=== PATIENT | male | born 1945 | race Caucasian/White ===

== ENCOUNTER 2020-06-14 20:59 | Observation (INO) ==
--- NOTE | 2020-06-14 21:38 | Emergency Department Note ---
Arrhythmia/Palpitations HPI General Chief Complaint: Arrhythmia/Palpitations Stated Complaint: TACHY AFTER DIALYSIS Time Seen by Provider: 06/14/20 21:04 Source: patient Mode of arrival: wheelchair Limitations: no limitations History of Present Illness HPI Narrative: Narrative: 75-year-old male who has felt woozy and lightheaded the last 2 times he has had dialysis. He has a history of atrial fibrillation/flutter and is on apixaban for that but he states he has not had an episode for like 18 months. He is on diltiazem twice a day for this as well. Denies fever shortness of breath. Related Data Home Medications Medication Instructions Recorded Confirmed blood-glucose meter 06/22/15 03/31/20 lancets 06/22/15 03/31/20 CBD 3 % PO PRN PRN 06/15/20 06/15/20 acetaminophen [Tylenol Extra 1,000 mg PO TID 06/15/20 06/15/20 Strength] lidocaine [Lidoderm] 1 patch TOPICAL DAILY 06/15/20 06/15/20 meloxicam 15 mg PO QDAY 06/15/20 06/15/20 Previous Rx's Medication Instructions Recorded Ileostomy Supplies #1 each 08/15/16 Breeze 2 Test Strips #200 each NS 11/08/17 Levemir U-100 Insulin 100 unit/mL See Rx Instructions .ROUTE 10/07/19 subcutaneous solution .COMPLEX #60 ml NS insulin syringe-needle U-100 1 mL #100 each 11/19/19 29 gauge x 5/16" liraglutide 0.6 mg/0.1 mL (18 mg/3 See Rx Instructions .ROUTE 02/19/20 mL) subcutaneous pen injector .COMPLEX #18 ml apixaban 2.5 mg tablet 2.5 mg PO BID #180 tab 06/03/20 diclofenac sodium 1 % topical gel 2 g TOPICAL QID #100 g 06/03/20 diltiazem HCl 420 mg capsule,24 420 mg PO QAM #90 cap 06/03/20 hr,extended release gabapentin 300 mg capsule 300 mg PO QHS #90 cap 06/03/20 vitamin B complex 1 tab PO QAM #100 tab 06/03/20 amitriptyline 25 mg tablet 25 mg PO QHS #30 tab 06/14/20 Allergies Allergy/AdvReac Type Severity Reaction Status Date / Time No Known Drug Allergies Allergy Verified 06/14/20 21:03 Review of Systems ROS ROS Narrative: Narrative: All systems ED: reviewed and negative except as stated. [facility] Narrative Patient History Narrative: Narrative: Medical/Surgical/Family History All Active Problems Atrial flutter with rapid ventricular response (Acute) Acute delirium (Acute) Hypoglycemia (Acute) ESRD (end stage renal disease) on dialysis (Acute) Renal mass, right (Acute) CKD stage G3a/A3, GFR 45-59 and albumin creatinine ratio >300 mg/g (Chronic) Degenerative joint disease involving multiple joints on both sides of body (Chronic) Chronic pain (Chronic) Sinusitis, acute (Acute) DAVE on CPAP (Chronic) Cataract (Acute) CKD (chronic kidney disease), stage III (Chronic) Near syncope (Acute) Atherosclerotic cardiovascular disease (Acute) Hypoglycemia associated with diabetes (Acute) Atypical syncope (Acute) Dyspnea (Acute) Anemia (Chronic) Osteoarthritis (Chronic) Atrial fibrillation (Chronic) Restless legs syndrome (Chronic) Encounter for Health Maintenance Examination in Adult (Chronic) Gastroesophageal reflux disease (Acute) Bursitis (Chronic) 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) Lumbar radiculopathy (Chronic) Nausea (Chronic) Uvulitis (Acute) Atrial flutter (Chronic) S/P insertion of spinal cord stimulator (Acute) Hx of ileostomy (Acute) Hx of cystoscopy (Acute) Hx of carpal tunnel repair (Acute) Sleep apnea (Chronic) Rhinitis, chronic (Chronic) Radiculopathy, lumbosacral or thoracic (Chronic) Proteinuria (Chronic) Peripheral neuropathy (Chronic) Knee pain (Chronic) Kidney stones (Chronic) Hypertension (Chronic) Hyperlipidemia, mixed (Chronic) Diabetes mellitus, type II (Chronic) Depression (Chronic) Ulcerative colitis (Chronic) Back pain with radiation (Chronic) Arthritis (Chronic) Medical History Arthritis (Chronic) Cervical by MRI in 2008 Atrial flutter (Chronic) to LATASHA--discussed w/ Dr Nixon Atrial flutter (Chronic) Back pain with radiation (Chronic) Low Back pain with radiculopathy-spinal stimulator in 2006, currently turned off Bursitis (Chronic) Chronic kidney disease (Chronic) CKD (chronic kidney disease), stage III (Chronic) CKD stage G3a/A3, GFR 45-59 and albumin creatinine ratio >300 mg/g (Chronic) Common things being common this is 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 Looking ahead if he undergoes a right nephrectomy he will end up with estimated GFR between 15 and 20 cc/min. To have explained to the patient Depression (Chronic) Chronic-Prozac Diabetes mellitus, type II (Chronic) Adult onset insulin dependent diabetes with now increasing peripheral neuropathy and mild proteinuria Gastroesophageal reflux disease (Acute) Hyperlipidemia, mixed (Chronic) with multiple medicine intolerences Hypertension (Chronic) Kidney stones (Chronic) Recurrent renal stones with previous retrograde and cysto in 2010; episodic followup with Dr. Colvin, now following with Dr. New; hospitialization 2012 for recurrent kidney stone. Knee pain (Chronic) bilateral half-way current use of anticoagulant therapy (Chronic) started on coumadin 07/2015 Lumbar radiculopathy (Chronic) Nausea (Chronic) DAVE (obstructive sleep apnea) (Acute) DAVE on CPAP (Chronic) Peripheral neuropathy (Chronic) Proteinuria (Chronic) Mild Pruritus (Chronic) Radiculopathy, lumbosacral or thoracic (Chronic) Low back pain with radiculopathy--spinal stimulator in 2006, currently turned off. Renal failure, chronic (Resolved) 11/18/13 Renal mass, right (Acute) This is new in reviewing his scan. Side effects related to his back pain as he has lots of DJD and cervical spinal stenosis and the pain predated the radiographic detection of his right renal mass. Saw Dr Barth for right renal mass and referred to Rubi for either IR ablation of RCCA or laproscopic nephron sparing partial NPx, he mentioned Dr Lee but I am not familiar with this physician. Rhinitis, chronic (Chronic) Sleep apnea (Chronic) with intolerance to CPAP Ulcerative colitis (Chronic) status post ileostomy in 1990 with stable B12 levels chronically Uvulitis (Acute) Surgical History History of endoscopy (Acute) 03/02/2020-Dr. Mejia Hx of carpal tunnel repair (Acute) Hx of cystoscopy (Acute) History of recurrent renal stones with previous retrograde and cysto in 2010; episodic followup with Dr. Colvin, now following with Dr. New; recent hospitalization for recurrent kidney stone with repeat 24 hour urine pending. Hx of ileostomy (Acute) Ulcerative colitis status post ileostomy in 1990 with stable B12 level last year. S/P insertion of spinal cord stimulator (Acute) 2006-currently turned off Family History Grandfather Cardiac disease Cerebrovascular accident Mother , Lung cancer No problems noted. Other Cancer HTN (hypertension) Kidney stone Prostate cancer Social History Smoking Status: Former smoker Alcohol Intake Frequency: does not drink Substance Use: does not use Exam Narrative Narrative: Narrative:No acute distress. Conjunctive are clear sclerae white nonicteric. No nasal discharge or congestion. Oropharynx pink and moist. Neck is supple without lymphadenopathy or thyromegaly. Heart is tachycardic I cannot hear a murmur. Lungs are clear to auscultation bilaterally without wheezes rales rhonchi or respiratory distress. He does have multiple scars on her abdomen including one from nephrectomy and a midline scar. He is also got an ostomy bag in place from previous total colectomy. This does seem to be in good position and is not leaking. No pedal edema. Alert oriented able answer q uestions appropriately. He is moving around without difficulty General Limitations: no limitations Course Vital Signs Vital signs: Vital Signs Pulse Rate 142 H 06/14/20 21:00 Respiratory Rate 16 06/14/20 21:00 Blood Pressure 157/109 06/14/20 21:00 Pulse Oximetry (%) 100 06/14/20 21:00 Temperature 99 F 06/15/20 08:01 Pulse Rate 89 06/15/20 02:01 Respiratory Rate 20 06/15/20 08:01 Blood Pressure 157/89 06/15/20 08:01 Pulse Oximetry (%) 98 06/15/20 08:01 [facility] MDM Narrative Medical decision making narrative: Narrative: Patient was initially mentating normally at rest and was just tachycardic-he clearly has atrial flutter with rapid ventricular response. He already took his diltiazem this morning and it is a relatively high dose so I gave him metoprolol 5 mg IV. He actually did well with that and was almost rate controlled with rates in the 100-110 range I went to reevaluate him and he was consistently doing better in terms of rate control but patient became delirious and diaphoretic. Found to have blood sugar of 47. Given sugar and was getting better. We ended up giving him metoprolol 25 mg p.o. which did help as well with the rate control I advised the patient we should probably evaluate him because of his labile blood sugars and heart rate-I discussed the case with Dr. Gonzalez, our hospitalist. He agreed to accept the patient for further care and evaluation. I also briefly discussed the case with Dr. Lockwood the night clerk auditor, he agreed to consult on the patient Later nursing staff called to report that he did spontaneously convert to sinus rhythm Lab Data Lab results reviewed: Yes I reviewed the patient's lab results. Result diagrams: 06/15/20 07:00 06/15/20 07:00 Labs: Lab Results 06/14/20 06/14/20 06/14/20 Range/Units 21:35 21:36 21:36 WBC 9.8 (4.50-11.00) K/mcL RBC 3.72 L (4.63-6.08) M/mcL Hgb 11.9 L (13.7-17.5) g/dL Hct 35.4 L (40.1-51.0) % MCV 95.2 (80.0-100.0) fL MCH 32.0 (26.0-34.0) pg MCHC 33.6 (31.0-36.0) g/dL RDW 12.5 (11.5-14.5) % Plt Count 322 (140-440) K/mcL MPV 9.1 (7.4-10.4) fL Gran % 61.9 (38.0-78.0) % Lymph % (Auto) 25.0 (15.5-49.0) % Caroline % (Auto) 7.6 (1.0-12.0) % Eos % (Auto) 4.9 (0.0-7.0) % Baso % (Auto) 0.6 (0.0-2.0) % Gran # 6.03 (1.80-8.00) K/mcL Lymph # (Auto) 2.44 (1.50-4.80) K/mcL Caroline # (Auto) 0.74 (0.10-0.90) K/mcL Eos # (Auto) 0.48 (0.00-0.70) K/mcL Baso # (Auto) 0.06 (0.00-0.30) K/mcL Sodium 135 (133-145) mmol/L Potassium 4.4 (3.3-5.1) mmol/L Chloride 95 L (96-108) mmol/L Carbon Dioxide 26 (22-30) mmol/L Anion Gap 14.0 (8-16) BUN 26 H (8-23) mg/dl Creatinine 3.6 H (0.7-1.2) mg/dl GFR Calculation 16 Glucose 69 L (70-105) mg/dL Calcium 9.1 (8.6-10.4) mg/dl Phosphorus (2.7-4.5) mg/dL Magnesium (1.6-2.5) mg/dL Total Bilirubin 0.2 (0.0-1.0) mg/dL AST 13 (0-37) U/l ALT 16 (0-40) U/l Alkaline Phosphatase 96 (39-117) U/L Troponin T 0.08 H* (0-0.03) ng/ml NT-Pro-B Natriuret Pep (0-125) pg/ml Total Protein 7.5 (5.9-8.4) gm/dL Albumin 4.0 (3.2-5.2) gm/dL Globulin 3.5 (2.2-3.7) gm/dL Albumin/Globulin Ratio 1.1 (1.0-2.3) TSH 3.07 (0.27-5.01) uIU/ml 06/15/20 06/15/20 Range/Units 01:00 01:00 WBC (4.50-11.00) K/mcL RBC (4.63-6.08) M/mcL Hgb (13.7-17.5) g/dL Hct (40.1-51.0) % MCV (80.0-100.0) fL MCH (26.0-34.0) pg MCHC (31.0-36.0) g/dL RDW (11.5-14.5) % Plt Count (140-440) K/mcL MPV (7.4-10.4) fL Gran % (38.0-78.0) % Lymph % (Auto) (15.5-49.0) % Caroline % (Auto) (1.0-12.0) % Eos % (Auto) (0.0-7.0) % Baso % (Auto) (0.0-2.0) % Gran # (1.80-8.00) K/mcL Lymph # (Auto) (1.50-4.80) K/mcL Caroline # (Auto) (0.10-0.90) K/mcL Eos # (Auto) (0.00-0.70) K/mcL Baso # (Auto) (0.00-0.30) K/mcL Sodium (133-145) mmol/L Potassium (3.3-5.1) mmol/L Chloride (96-108) mmol/L Carbon Dioxide (22-30) mmol/L Anion Gap (8-16) BUN (8-23) mg/dl Creatinine (0.7-1.2) mg/dl GFR Calculation Glucose (70-105) mg/dL Calcium (8.6-10.4) mg/dl Phosphorus 5.5 H (2.7-4.5) mg/dL Magnesium 2.1 (1.6-2.5) mg/dL Total Bilirubin (0.0-1.0) mg/dL AST (0-37) U/l ALT (0-40) U/l Alkaline Phosphatase (39-117) U/L Troponin T 0.08 H* (0-0.03) ng/ml NT-Pro-B Natriuret Pep 935.7 H (0-125) pg/ml Total Protein (5.9-8.4) gm/dL Albumin (3.2-5.2) gm/dL Globulin (2.2-3.7) gm/dL Albumin/Globulin Ratio (1.0-2.3) TSH (0.27-5.01) uIU/ml EKG Data EKG #1: EKG attestation: Yes I reviewed and interpreted this EKG. EKG results narrative: atrial flutter with rapid ventricular response EKG #2: EKG attestation: Yes I reviewed and interpreted this EKG. EKG results narrative: EKG shows continued atrial flutter but rate controlled Discharge Plan Patient/Caregiver Discharge Instructions Pt seen by UNDERGROUND MINER/PA only: No Clinical Impression: ESRD (end stage renal disease) on dialysis, Atrial flutter with rapid ventricular response, Acute delirium, Hypoglycemia Patient Disposition: Xfer As Inpt ([facility]) Condition: Fair Discharge Date/Time: 06/15/20 02:09 Discharge Location: [facility]
[2020-06-14] MEDS: METOPROLOL TARTRATE 5 MG/5 ML VIAL IV SCH ×3 (22:00→22:15)
[2020-06-14 22:17] LABS: Basophils # (Auto) 0.06 K/mcL (0.00-0.30); Basophils % (Auto) 0.6 % (0.0-2.0); Eosinophils # (Auto) 0.48 K/mcL (0.00-0.70); Eosinophils % (Auto) 4.9 % (0.0-7.0); Granulocytes % (Auto) 61.9 % (38.0-78.0); Hematocrit 35.4 % (40.1-51.0); Hemoglobin 11.9 g/dL (13.7-17.5); Lymphocytes # (Auto) 2.44 K/mcL (1.50-4.80); Mean Cell Volume 95.2 fL (80.0-100.0); Mean Corpuscular HGB Conc 33.6 g/dL (31.0-36.0); Mean Platelet Volume 9.1 fL (7.4-10.4); Monocytes # (Auto) 0.74 K/mcL (0.10-0.90); Monocytes % (Auto) 7.6 % (1.0-12.0); Platelet Count 322 K/mcL (140-440); RBC 3.72 M/mcL (4.63-6.08); Red Cell Distribution Width 12.5 % (11.5-14.5); WBC 9.8 K/mcL (4.50-11.00)
[2020-06-14 22:54] LABS: ALT/SGPT 16 U/l (0-40); AST/SGOT 13 U/l (0-37); Albumin/Globulin Ratio 1.1 (1.0-2.3); Alkaline Phosphatase 96 U/L (39-117); Bilirubin,Total 0.2 mg/dL (0.0-1.0); Blood Urea Nitrogen 26 mg/dl (8-23); Calcium 9.1 mg/dl (8.6-10.4); Carbon Dioxide 26 mmol/L (22-30); Globulin 3.5 gm/dL (2.2-3.7); Glomerular Filtration Rate 16; Glucose 69 mg/dL (70-105); Thyroid Stimulating Hormone 3.07 uIU/ml (0.27-5.01)
[2020-06-14 22:57] LABS: Chloride 95 mmol/L (96-108)
[2020-06-14] MEDS ORDERED: METOPROLOL TARTRATE 25 MG TABLET PO ONE (23:19)
[2020-06-15] MEDS ORDERED: ONDANSETRON 4 MG/2 ML VIAL IV PRN (00:44)
[2020-06-15] MEDS ORDERED: DEXTROSE 31 GM ORAL.SUSP PO PRN (00:49)
[2020-06-15] MEDS ORDERED: DEXTROSE 50% 50 ML VIAL IV PRN (00:49)
[2020-06-15] MEDS ORDERED: METOPROLOL TARTRATE 5 MG/5 ML VIAL IV PRN ×2 (00:51→11:30)
--- NOTE | 2020-06-15 00:55 | Internal Med History&Physical ---
HPI History of Present Illness Patient information: Note initiated : 06/15/20 at 12:54 am Service Date, if different from initiated Date: [] Patient: Jayson Bush a 75 y/o M admitted on for TACHY AFTER DIALYSIS. Chief Complaint: [] History of present illness: Mr. Bush is a 75 year old M with a history of atrial fibrillation and atrial flutter, end-stage renal disease on dialysis, diabetes, high blood pressure, and history of ulcerative colitis who presented to the ER due to palpitation and lightheadedness during dialysis. As per patient, patient these feelings during the last 2 sessions of dialysis. In the ER, he was found to have atrial flutter with rapid ventricular response. He was given metoprolol to control the heart rate. He also was found to be confused. Checked on his blood sugar, showing 47. His sugar level went back to normal after D50 was given. His mental status significantly improved. When I saw the patient in the ER, other than symptoms above, he denied headache, dizziness, chest pain, shortness of breath, abdominal pain, diarrhea, nausea, vomiting. Review of Systems All systems: reviewed and no additional remarkable complaints except as stated PFSH PFSH All Active Problems Atrial flutter with rapid ventricular response (Acute) Acute delirium (Acute) Hypoglycemia (Acute) ESRD (end stage renal disease) on dialysis (Acute) Renal mass, right (Acute) CKD stage G3a/A3, GFR 45-59 and albumin creatinine ratio >300 mg/g (Chronic) Degenerative joint disease involving multiple joints on both sides of body (Chronic) Chronic pain (Chronic) Sinusitis, acute (Acute) DAVE on CPAP (Chronic) Cataract (Acute) CKD (chronic kidney disease), stage III (Chronic) Near syncope (Acute) Atherosclerotic cardiovascular disease (Acute) Hypoglycemia associated with diabetes (Acute) Atypical syncope (Acute) Dyspnea (Acute) Anemia (Chronic) Osteoarthritis (Chronic) Atrial fibrillation (Chronic) Restless legs syndrome (Chronic) Encounter for Health Maintenance Examination in Adult (Chronic) Gastroesophageal reflux disease (Acute) Bursitis (Chronic) 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) Lumbar radiculopathy (Chronic) Nausea (Chronic) Uvulitis (Acute) Atrial flutter (Chronic) S/P insertion of spinal cord stimulator (Acute) Hx of ileostomy (Acute) Hx of cystoscopy (Acute) Hx of carpal tunnel repair (Acute) Sleep apnea (Chronic) Rhinitis, chronic (Chronic) Radiculopathy, lumbosacral or thoracic (Chronic) Proteinuria (Chronic) Peripheral neuropathy (Chronic) Knee pain (Chronic) Kidney stones (Chronic) Hypertension (Chronic) Hyperlipidemia, mixed (Chronic) Diabetes mellitus, type II (Chronic) Depression (Chronic) Ulcerative colitis (Chronic) Back pain with radiation (Chronic) Arthritis (Chronic) Medical History Arthritis (Chronic) Cervical by MRI in 2008 Atrial flutter (Chronic) to LATASHA--discussed w/ Dr Nixon Atrial flutter (Chronic) Back pain with radiation (Chronic) Low Back pain with radiculopathy-spinal stimulator in 2006, currently turned off Bursitis (Chronic) Chronic kidney disease (Chronic) CKD (chronic kidney disease), stage III (Chronic) CKD stage G3a/A3, GFR 45-59 and albumin creatinine ratio >300 mg/g (Chronic) Common things being common this is 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 Looking ahead if he undergoes a right nephrectomy he will end up with estimated GFR between 15 and 20 cc/min. To have explained to the patient Depression (Chronic) Chronic-Prozac Diabetes mellitus, type II (Chronic) Adult onset insulin dependent diabetes with now increasing peripheral neuropathy and mild proteinuria Gastroesophageal reflux disease (Acute) Hyperlipidemia, mixed (Chronic) with multiple medicine intolerences Hypertension (Chronic) Kidney stones (Chronic) Recurrent renal stones with previous retrograde and cysto in 2010; episodic followup with Dr. Colvin, now following with Dr. New; hospitialization 2012 for recurrent kidney stone. 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 Renal failure, chronic (Resolved) 11/18/13 Renal mass, right (Acute) This is new in reviewing his scan. Side effects related to his back pain as he has lots of DJD and cervical spinal stenosis and the pain predated the radiographic detection of his right renal mass. Saw Dr Barth for right renal mass and referred to Rubi for either IR ablation of RCCA or laproscopic nephron sparing partial NPx, he mentioned Dr Lee but I am not familiar with this physician. Rhinitis, chronic (Chronic) Sleep apnea (Chronic) with intolerance to CPAP Ulcerative colitis (Chronic) status post ileostomy in 1990 with stable B12 levels chronically Uvulitis (Acute) Surgical History History of endoscopy (Acute) 03/02/2020-Dr. Mejia Hx of carpal tunnel repair (Acute) Hx of cystoscopy (Acute) History of recurrent renal stones with previous retrograde and cysto in 2010; episodic followup with Dr. Colvin, now following with Dr. New; recent hospitalization for recurrent kidney stone with repeat 24 hour urine pending. Hx of ileostomy (Acute) Ulcerative colitis status post ileostomy in 1990 with stable B12 level last year. S/P insertion of spinal cord stimulator (Acute) 2006-currently turned off Family History Grandfather Cardiac disease Cerebrovascular accident Mother , Lung cancer No problems noted. Other Cancer HTN (hypertension) Kidney stone Prostate cancer Social History household members: spouse housing: house marital status: occupational status: retired smoking status: Former smoker quit date: 09/24/84 pack-years: 15 alcohol intake frequency: does not drink substance use type: does not use MEDS/ALLERGIES Home Medications and Allergies Home Medications Medication Instructions Recorded Confirmed Type blood-glucose meter 06/22/15 03/31/20 History lancets 06/22/15 03/31/20 History Ileostomy Supplies #1 each 08/15/16 03/31/20 Rx Breeze 2 Test Strips #200 each NS 11/08/17 03/31/20 Rx Levemir U-100 Insulin 100 unit/mL See Rx Instructions .ROUTE 10/07/19 06/15/20 Rx subcutaneous solution .COMPLEX #60 ml NS insulin syringe-needle U-100 1 mL #100 each 11/19/19 03/31/20 Rx 29 gauge x 5/16" liraglutide 0.6 mg/0.1 mL (18 mg/3 See Rx Instructions .ROUTE 02/19/20 06/15/20 Rx mL) subcutaneous pen injector .COMPLEX #18 ml apixaban 2.5 mg tablet 2.5 mg PO BID #180 tab 06/03/20 06/15/20 Rx diclofenac sodium 1 % topical gel 2 g TOPICAL QID #100 g 06/03/20 06/15/20 Rx diltiazem HCl 420 mg capsule,24 420 mg PO QAM #90 cap 06/03/20 06/15/20 Rx hr,extended release gabapentin 300 mg capsule 300 mg PO QHS #90 cap 06/03/20 06/15/20 Rx vitamin B complex 1 tab PO QAM #100 tab 06/03/20 06/15/20 Rx amitriptyline 25 mg tablet 25 mg PO QHS #30 tab 06/14/20 06/15/20 Rx CBD 3 % PO PRN PRN 06/15/20 06/15/20 History acetaminophen [Tylenol Extra 1,000 mg PO TID 06/15/20 06/15/20 History Strength] lidocaine [Lidoderm] 1 patch TOPICAL DAILY 06/15/20 06/15/20 History meloxicam 15 mg PO QDAY 06/15/20 06/15/20 History Allergies Allergy/AdvReac Type Severity Reaction Status Date / Time No Known Drug Allergies Allergy Verified 06/14/20 21:03 EXAM Constitutional Vitals: Pulse Resp BP Pulse Ox 93 H 24 H 146/93 97 06/15/20 00:46 06/15/20 00:46 06/15/20 00:46 06/15/20 00:46 Additional findings Additional findings: General - No acute distress Eyes - PERRLA, EOM intact ENT no rhinorrhea, no noticeable or palpable swelling, no redness or rash around throat or on face Neck supple, no JVD, no thyromegaly Respiratory: Lungs - diminshed BS, no use of accessary muscles. Cardiovascular - RRR no m/r/g, GI - Normal bowel sounds, no distended, soft. Colostomy bag filled yellow-green fecal liquid. Extremeties - No edema, cyanosis or clubbing Hemo/lymphatic/immune no lymphadenopathy Neurological Alert and oriented x 3, no focal neurological deficits. Psychiatry flat affect DATA Data Completed and Pending Labs: Labs from last 24 hours 06/14/20 06/14/20 06/14/20 21:36 21:36 21:35 WBC 9.8 RBC 3.72 L Hgb 11.9 L Hct 35.4 L MCV 95.2 MCH 32.0 MCHC 33.6 RDW 12.5 Plt Count 322 MPV 9.1 Gran % 61.9 Lymph % (Auto) 25.0 Bullock % (Auto) 7.6 Eos % (Auto) 4.9 Baso % (Auto) 0.6 Gran # 6.03 Lymph # (Auto) 2.44 Bullock # (Auto) 0.74 Eos # (Auto) 0.48 Baso # (Auto) 0.06 Sodium 135 Potassium 4.4 Chloride 95 L Carbon Dioxide 26 Anion Gap 14.0 BUN 26 H Creatinine 3.6 H GFR Calculation 16 Glucose 69 L Calcium 9.1 Total Bilirubin 0.2 AST 13 ALT 16 Alkaline Phosphatase 96 Troponin T 0.08 H* Total Protein 7.5 Albumin 4.0 Globulin 3.5 Albumin/Globulin Ratio 1.1 TSH 3.07 A/P Narrative A/P Narrative: 1. Atrial flutter with RVR 2. Hx of atrial fibrillation and atrial flutter TSH Magnesium Continue home medication diltiazem for 420 mg daily. Apixaban 2.5 mg twice daily Added metoprolol 12.5 mg twice daily Metoprolol IV 2.5 mg every 5 minutes as needed 3. AMS/Delirum Could be due to hypoglycemia, 47. His mental status significantly improved after D50 was given. Monitor 4. Hypoglycemia Usually patient uses Levemir 100 units in the morning and 100 units in the evening. Liraglutide As per patient, he changed his diet to renal diet 2 weeks ago. I am thinking the change could cause the hypoglycemia. His insulin regimen needs to be adjusted. I will not order long-acting insulin in the hospital. I will hold liraglutide. Insulin sliding scale only 5. ESRD on HD Nephrology consult 6. DM type 2 with nephropathy, HbA1c 8.9 Insulin sliding scale. Reason mentioned above 7. GERD PPI 8. HTN Diltiazem Metoprolol 9. Ulcerative colitis Follow with PCP and GI 10. Elevation of troponin Mildly elevated No ST elevation Most likely due to end-stage renal disease. Patient fully understood that there is no cyber security administrator or stress test available in this hospital. Follow with her cyber security administrator as an outpatient as soon as possible. 11. DVT prophylaxis: On anticoagulation Time Spent With Patient Time: Total time spent is greater than 50% in coordination of care (as documented) at patient's floor/unit and/or counseling patient:
[2020-06-15 02:03] LABS: proBNP 935.7 pg/ml (0-125)
[2020-06-15 02:12] LABS: Phosphorous 5.5 mg/dL (2.7-4.5)
[2020-06-15] MEDS: 0.9 % SODIUM CHLORIDE 10 ML SYRINGE IV SCH ×2 (05:27→16:09)
[2020-06-15 07:04] LABS: Thyroid Stimulating Hormone 2.64 uIU/ml (0.27-5.01)
[2020-06-15 07:11] LABS: Estimated Average Glucose(eAG) 212 mg/dL
[2020-06-15] MEDS: INSULIN LISPRO 1 UNIT/0.01 ML UNIT SQ SCH ×3 (07:54→17:34)
[2020-06-15 07:59] LABS: Basophils # (Auto) 0.05 K/mcL (0.00-0.30); Basophils % (Auto) 0.6 % (0.0-2.0); Eosinophils # (Auto) 0.33 K/mcL (0.00-0.70); Granulocytes % (Auto) 64.5 % (38.0-78.0); Hematocrit 33.1 % (40.1-51.0); Hemoglobin 11.3 g/dL (13.7-17.5); Lymphocytes % (Auto) 23.1 % (15.5-49.0); Mean Cell Volume 94.3 fL (80.0-100.0); Mean Corpuscular HGB Conc 34.1 g/dL (31.0-36.0); Mean Platelet Volume 9.1 fL (7.4-10.4); Monocytes # (Auto) 0.64 K/mcL (0.10-0.90); Monocytes % (Auto) 7.8 % (1.0-12.0); Platelet Count 279 K/mcL (140-440); RBC 3.51 M/mcL (4.63-6.08); Red Cell Distribution Width 12.3 % (11.5-14.5); WBC 8.2 K/mcL (4.50-11.00)
--- NOTE | 2020-06-15 08:00 | Nephrology Consult Note ---
HPI Data of Consult Patient: known to practice within the last 3 years Consult date: 06/15/20 Requesting physician: Claire Gonzalez Primary Care Provider: Mando Kilgore MD Consult Narrative Patient Information: Note initiated : 06/15/20 at 7:57 am Patient: Jayson Bush 75 y/o M admitted on 06/15/20 for TACHY AFTER DIALYSIS. Chief Complaint: Weakness Jayson Bush is a 75-year-old male with end-stage renal disease on chronic hemodialysis (through right IJ tunneled hemodialysis catheter, on MWF, followed by Dr. Valdivia), admitted on 06/14/20 for atrial flutter with RVR. He has diabetes mellitus type 2, hypertension, atrial flutter on Apixaban, history of ulcerative colitis status post ileostomy in 1990, right renal cell carcinoma s/p nephrectomy recently in [place]. He was started on hemodialysis post op in [place]. 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 (Chronic) Cataract (Acute) CKD (chronic kidney disease), stage III (Chronic) Near syncope (Acute) Atherosclerotic cardiovascular disease (Acute) Hypoglycemia associated with diabetes (Acute) Atypical syncope (Acute) Dyspnea (Acute) Anemia (Chronic) Osteoarthritis (Chronic) Atrial fibrillation (Chronic) Restless legs syndrome (Chronic) Encounter for Health Maintenance Examination in Adult (Chronic) Gastroesophageal reflux disease (Acute) Bursitis (Chronic) 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 (Chronic) Lumbar radiculopathy (Chronic) Nausea (Chronic) Uvulitis (Acute) Atrial flutter (Chronic) S/P insertion of spinal cord stimulator (Acute) Hx of ileostomy (Acute) Hx of cystoscopy (Acute) Hx of carpal tunnel repair (Acute) Sleep apnea (Chronic) Rhinitis, chronic (Chronic) Radiculopathy, lumbosacral or thoracic (Chronic) Proteinuria (Chronic) Peripheral neuropathy (Chronic) Knee pain (Chronic) Kidney stones (Chronic) Hypertension (Chronic) Hyperlipidemia, mixed (Chronic) Diabetes mellitus, type II (Chronic) Depression (Chronic) Ulcerative colitis (Chronic) Back pain with radiation (Chronic) Arthritis (Chronic) Medical History Arthritis (Chronic) Cervical by MRI in 2008 Atrial flutter (Chronic) to LATASHA--discussed w/ Dr Nixon Atrial flutter (Chronic) Back pain with radiation (Chronic) Low Back pain with radiculopathy-spinal stimulator in 2006, currently turned off Bursitis (Chronic) Chronic kidney disease (Chronic) CKD (chronic kidney disease), stage III (Chronic) CKD stage G3a/A3, GFR 45-59 and albumin creatinine ratio >300 mg/g (Chronic) Common things being common this is 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 Looking ahead if he undergoes a right nephrectomy he will end up with estimated GFR between 15 and 20 cc/min. To have explained to the patient Depression (Chronic) Chronic-Prozac Diabetes mellitus, type II (Chronic) Adult onset insulin dependent diabetes with now increasing peripheral neuropathy and mild proteinuria Gastroesophageal reflux disease (Acute) Hyperlipidemia, mixed (Chronic) with multiple medicine intolerences Hypertension (Chronic) Kidney stones (Chronic) Recurrent renal stones with previous retrograde and cysto in 2010; episodic followup with Dr. Colvin, now following with Dr. New; hospitialization 2012 for recurrent kidney stone. Knee pain (Chronic) bilateral alf current use of anticoagulant therapy (Chronic) started on coumadin 07/2015 Lumbar radiculopathy (Chronic) Nausea (Chronic) DAVE (obstructive sleep apnea) (Acute) DAVE on CPAP (Chronic) Peripheral neuropathy (Chronic) Proteinuria (Chronic) Mild Pruritus (Chronic) Radiculopathy, lumbosacral or thoracic (Chronic) Low back pain with radiculopathy--spinal stimulator in 2006, currently turned off. Renal failure, chronic (Resolved) 11/18/13 Renal mass, right (Acute) This is new in reviewing his scan. Side effects related to his back pain as he has lots of DJD and cervical spinal stenosis and the pain predated the radiographic detection of his right renal mass. Saw Dr Barth for right renal mass and referred to Rubi for either IR ablation of RCCA or laproscopic nephron sparing partial NPx, he mentioned Dr Lee but I am not familiar with this physician. Rhinitis, chronic (Chronic) Sleep apnea (Chronic) with intolerance to CPAP Ulcerative colitis (Chronic) status post ileostomy in 1990 with stable B12 levels chronically Uvulitis (Acute) Surgical History History of endoscopy (Acute) 03/02/2020-Dr. Mejia Hx of carpal tunnel repair (Acute) Hx of cystoscopy (Acute) History of recurrent renal stones with previous retrograde and cysto in 2010; episodic followup with Dr. Colvin, now following with Dr. New; recent hospitalization for recurrent kidney stone with repeat 24 hour urine pending. Hx of ileostomy (Acute) Ulcerative colitis status post ileostomy in 1990 with stable B12 level last year. S/P insertion of spinal cord stimulator (Acute) 2006-currently turned off Family History Grandfather Cardiac disease Cerebrovascular accident Mother , Lung cancer No problems noted. Other Cancer HTN (hypertension) Kidney stone Prostate cancer Social History household members: spouse housing: house marital status: occupational status: retired smoking status: Former smoker quit date: 09/24/84 pack-years: 15 alcohol intake frequency: does not drink substance use type: does not use MEDS/ALLERGIES Home Medications and Allergies Home Medications Medication Instructions Recorded Confirmed Type blood-glucose meter 06/22/15 03/31/20 History lancets 06/22/15 03/31/20 History Ileostomy Supplies #1 each 08/15/16 03/31/20 Rx Breeze 2 Test Strips #200 each NS 11/08/17 03/31/20 Rx Levemir U-100 Insulin 100 unit/mL See Rx Instructions .ROUTE 10/07/19 06/15/20 Rx subcutaneous solution .COMPLEX #60 ml NS insulin syringe-needle U-100 1 mL #100 each 11/19/19 03/31/20 Rx 29 gauge x 5/16" liraglutide 0.6 mg/0.1 mL (18 mg/3 See Rx Instructions .ROUTE 02/19/20 03/31/20 Rx mL) subcutaneous pen injector .COMPLEX #18 ml apixaban 2.5 mg tablet 2.5 mg PO BID #180 tab 06/03/20 Rx diclofenac sodium 1 % topical gel 2 g TOPICAL QID #100 g 06/03/20 06/15/20 Rx diltiazem HCl 420 mg capsule,24 420 mg PO QAM #90 cap 06/03/20 06/15/20 Rx hr,extended release gabapentin 300 mg capsule 300 mg PO QHS #90 cap 06/03/20 06/15/20 Rx vitamin B complex 1 tab PO QAM #100 tab 06/03/20 Rx amitriptyline 25 mg tablet 25 mg PO QHS #30 tab 06/14/20 06/15/20 Rx CBD 3 % PO PRN PRN 06/15/20 06/15/20 History acetaminophen [Tylenol Extra 1,000 mg PO TID 06/15/20 06/15/20 History Strength] lidocaine [Lidoderm] 1 patch TOPICAL DAILY 06/15/20 06/15/20 History meloxicam 15 mg PO QDAY 06/15/20 06/15/20 History Allergies Allergy/AdvReac Type Severity Reaction Status Date / Time No Known Drug Allergies Allergy Verified 06/14/20 21:03 Physical Examination Vital Signs Vital signs: Temp Pulse Resp BP Pulse Ox 97.3 F 89 19 153/88 95 06/15/20 02:45 06/15/20 02:01 06/15/20 06:11 06/15/20 06:08 06/15/20 02:01 General Appearance General appearance: well-developed, well-nourished and appears started age Neck Neck: no JVD, no thyromegaly, no carotid bruit and supple Respiratory Respiratory: no kyphosis and no scoliosis Cardiovascular Cardiology: no murmurs, no rub, no gallops, no edema, regular rate, regular rhythm, normal S1 and normal S2 Integumentary Integumentary: no rash and warm and dry Neurologic Neurologic: no focal deficit, no asterixis, alert and oriented x3, reflexes 2+ and symmetric, gait normal and strength 5/5 Musculoskeletal Musculoskeletal: no deformities, no erythema, no cyanosis and no clubbing Psychiatric Psychiatric: mood/affect appropriate and cooperative Results Lab Results Result Diagrams: 06/15/20 07:00 06/15/20 07:00 Lab results: Most recent lab results Calcium 9.1 mg/dl (8.6-10.4) 06/14/20 21:35 Phosphorus 5.5 mg/dL (2.7-4.5) H 06/15/20 01:00 Magnesium 2.1 mg/dL (1.6-2.5) 06/15/20 01:00 A/P Assessment and plan (1) ESRD (end stage renal disease) on dialysis: Assessment and plan: Jayson Bush is a 75-year-old male with end-stage renal disease on chronic hemodialysis (through right IJ tunneled hemodialysis catheter, on MW, followed by Dr. Valdivia), admitted on 06/14/20 for atrial flutter with RVR. He has diabetes mellitus type 2, hypertension, atrial flutter on Apixaban, history of ulcerative colitis status post ileostomy in 1990, right renal cell carcinoma s/p nephrectomy recently in [place]. He was started on hemodialysis post op in [place]. Progress: Last hemodialysis on 06/14/20. No fluid overload. Right flank pain at the surgical site since surgery which may worsen atrial flutter with RVR. Electrolytes are significant for mild hyponatremia and hyperkalemia. Plan: Continue hemodialysis [facility]. Status: Acute Time Spent With Patient Time: Total time spent is greater than 50% in coordination of care (as documented) at patient's floor/unit and/or counseling patient:
[2020-06-15 08:07] LABS: ALT/SGPT 13 U/l (0-40); AST/SGOT 12 U/l (0-37); Albumin 3.4 gm/dL (3.2-5.2); Albumin/Globulin Ratio 1.1 (1.0-2.3); Alkaline Phosphatase 88 U/L (39-117); Bilirubin,Total < 0.2 mg/dL (0.0-1.0); Blood Urea Nitrogen 32 mg/dl (8-23); Calcium 8.6 mg/dl (8.6-10.4); Carbon Dioxide 22 mmol/L (22-30); Chloride 95 mmol/L (96-108); Glomerular Filtration Rate 12; Glucose 170 mg/dL (70-105)
[2020-06-15] MEDS ORDERED: DILTIAZEM 180 MG CAP.XL.24H PO SCH ×2 (09:00)
[2020-06-15] MEDS ORDERED: APIXABAN 5 MG TABLET PO SCH (09:00)
[2020-06-15] MEDS ORDERED: DILTIAZEM 240 MG CAP.XL.24H PO SCH (09:00)
[2020-06-15] MEDS ORDERED: DOCUSATE SODIUM 100 MG CAPSULE PO SCH (09:00)
--- NOTE | 2020-06-15 09:07 | Nephrology Progress Note ---
SUBJECTIVE Subjective Patient information: Note initiated : 06/15/20 at 8:53 am Service Date, if different from initiated Date: [] Patient: Jayson Bush 75 y/o M admitted on 06/15/20 for TACHY AFTER DIALYSIS. Chief Complaint: [afib with RVR on HD] I spoke with Dr. Alanis concerning this patient and my concerns. According to this patient's former primary care physician, and in my month-long experience with this patient on dialysis (left renal atrophy and recent right nephrectomy for RCC) he is incapable of sustaining life without renal replacement therapy. His major problem is pain and chronic narcotic dependence. Following the lead from his former primary care physician I have held the line on narcotic administration. Complains vehemently of neck and back pain to the point that he cannot sit through a dialysis session and frequently skips 1 treatment a week. He says all the usual remedies of nonnarcotic pain relief including topical lidocaine, topical diclofenac, running Tylenol, and having decided that he is unlikely to have sufficient recovery of renal function to get off dialysis I began him on full dose meloxicam 15 mg a day which of course is not helping him. Dr. Perez ratcheted down his narcotic administration I agree with this policy. Therefore I would limited his narcotic administration to what ever you are willing to prescribe as an outpatient. No pulp tester will be responsible for ordering any narcotic medications and this should be made clear to patient. This is an information only note for which no charge is to be rendered. Constitutional Vitals: Vital Signs Temp Pulse Resp BP Pulse Ox 37.2 C 89 20 157/89 98 06/15/20 08:01 06/15/20 02:01 06/15/20 08:01 06/15/20 08:01 06/15/20 08:01 Period Temp Pulse Resp BP Sys/Terry Pulse Ox Last 24 Hr 36.3 C-37.2 C 49-142 8-37 118-174/73-135 95-100 Intake and Output 06/14/20 06/15/20 06/15/20 21:59 05:59 13:59 Output Total 800 250 Balance -800 -250 Weight 108.862 kg 108.862 kg Intake & Output: Intake & Output 06/14/20 06/15/20 06/15/20 21:59 05:59 13:59 Output Total 800 250 Balance -800 -250 Weight 108.862 kg 108.862 kg Output: Void Amount 250 Stool 800 Other: Urine Appearance Clear Urine Color Bright Yellow Urine Odor Strong Stool Color Brown Stool Consistency Soft Exam: See my note from dialysis rounding on 06/14/2020 A/P Assessment and plan (1) Atrial flutter with rapid ventricular response: Status: Acute (2) ESRD (end stage renal disease) on dialysis: Status: Acute (3) Chronic pain: Status: Chronic Comment: multijoint osteoarthritis Qualifiers: Chronic pain type: other chronic pain Qualified Code(s): G89.29 - Other chronic pain Narrative A/P Narrative: 1. Avoid narcotics 2. No pulp tester will be prescribing this patient any narcotics 3. Minimize polypharmacy; I recommended and ordered amitriptyline 25 mg at bedtime, gabapentin 300 mg at bedtime (3 times the normal dose for dialysis patients), [id number] Tylenol 1000 mg 3 times a day. Topical lidoDerm and diclofenac to his back. 4. Feel the need to use a narcotic he can have tramadol adjusted for renal insufficiency at 50 mg p.o. twice daily as needed and nothing else. 5. Clonidine patch for withdrawal symptom. 6. Rate control for A. fib I would not anticoagulate this patient 7. No free to call me with any questions you may have even though I am not onsite health coach Time Spent With Patient Time: none
[2020-06-15] MEDS ORDERED: 0.9 % SODIUM CHLORIDE 1,000 ML BAG IV SCH (11:15)
--- NOTE | 2020-06-15 11:16 | Event Note ---
Event Note Event Note: pt complains of right upper and right flank area abd pain x 3 weeks. But the pain has not been worsening. The pain is constant, 4-9/10 in severity and sharp in nature. He has ESRD on HD. Discussed with radiology Dr. Elizabeth, who felt pt can have contrast but at best have HD within 24hrs after use of contrast. RN and I discussed with pt and who do not want to have the CT in the hospital. He will probably have HD tomorrow but he does not want to stay in hospital one more night. He must go home today. He would like to have CT abd/pelvis with contrast on the HD day (CT first and then HD) as an outpatient. He will ask his pcp and nephrology to work on this.
[2020-06-15] MEDS ORDERED: 0.9 % SODIUM CHLORIDE 1,000 ML IV ONE (11:30)
[2020-06-15] MEDS ORDERED: traMADol 50 MG TABLET PO PRN (11:32)
[2020-06-15] MEDS ORDERED: METOPROLOL TARTRATE 25 MG TABLET PO SCH (11:35)
[2020-06-15] MEDS: LIDOCAINE 5% OINT TUBE 35GM TOPICAL ONE ×2 (11:42→11:59)
[2020-06-15] MEDS ORDERED: ACETAMINOPHEN 500 MG TABLET PO SCH (14:00)
[2020-06-15] MEDS ORDERED: AMITRIPTYLINE 25 MG TABLET PO SCH (21:00)
[2020-06-15] MEDS ORDERED: cloNIDine HCL 0.1 MG TABLET PO SCH (21:00)
--- NOTE | 2020-06-15 22:46 | Discharge Summary ---
Discharge Provider Provider Patient information: Note initiated : 06/15/20 at 10:35 pm Service Date, if different from initiated Date: [] Patient: Jayson Bush 75 y/o M admitted on 06/15/20 for TACHY AFTER DIALYSIS. Chief Complaint: [] Date of admission: 06/15/20 02:09 Discharge date: 06/15/20 Primary care physician: Mando Kilgore MD Consults: 06/15/20 Consult to Physician [CONS] Stat Comment: Consulting Provider: Claire Gonzalez Reason For Exam: Physician to Consult Consult to Physician [CONS] Stat Comment: Consulting Provider: Don Valdivia Reason For Exam: Physician to Consult Discharge Meds Discharge Medications Home Medications blood-glucose meter 06/22/15 [History Confirmed 03/31/20 Last Taken Unknown] lancets 06/22/15 [History Confirmed 03/31/20 Last Taken Unknown] Ileostomy Supplies #1 each 08/15/16 [Rx Confirmed 03/31/20 Last Taken Unknown] Breeze 2 Test Strips #200 each NS 11/08/17 [Rx Confirmed 03/31/20 Last Taken Unknown] Levemir U-100 Insulin 100 unit/mL subcutaneous solution See Rx Instructions .ROUTE .COMPLEX #60 ml NS 10/07/19 [Rx Confirmed 06/15/20 Last Taken 06/14/20 09:00] insulin syringe-needle U-100 1 mL 29 gauge x 5/16" #100 each 11/19/19 [Rx Confirmed 03/31/20 Last Taken Unknown] liraglutide 0.6 mg/0.1 mL (18 mg/3 mL) subcutaneous pen injector See Rx Instructions .ROUTE .COMPLEX #18 ml 02/19/20 [Rx Confirmed 06/15/20 Last Taken 06/14/20 09:00] apixaban 2.5 mg tablet 2.5 mg PO BID #180 tab 06/03/20 [Rx Confirmed 06/15/20 Last Taken 06/14/20 09:00] diclofenac sodium 1 % topical gel 2 g TOPICAL QID #100 g 06/03/20 [Rx Confirmed 06/15/20 Last Taken 06/14/20] diltiazem HCl 420 mg capsule,24 hr,extended release 420 mg PO QAM #90 cap 06/03/20 [Rx Confirmed 06/15/20 Last Taken 06/14/20 09:00] gabapentin 300 mg capsule 300 mg PO QHS #90 cap 06/03/20 [Rx Confirmed 06/15/20 Last Taken 06/13/20] vitamin B complex 1 tab PO QAM #100 tab 06/03/20 [Rx Confirmed 06/15/20 Last Taken 06/14/20 09:00] amitriptyline 25 mg tablet 25 mg PO QHS #30 tab 06/14/20 [Rx Confirmed 06/15/20 Last Taken Unknown] CBD 3 % PO PRN PRN 06/15/20 [History Confirmed 06/15/20 Last Taken 06/08/20] acetaminophen [Tylenol Extra Strength] 1,000 mg PO TID 06/15/20 [History Confirmed 06/15/20 Last Taken Unknown] lidocaine [Lidoderm] 1 patch TOPICAL DAILY 06/15/20 [History Confirmed 06/15/20 Last Taken Unknown] meloxicam 15 mg PO QDAY 06/15/20 [History Confirmed 06/15/20 Last Taken 06/13/20 ] COURSE Hospital Course Hospital course: Patient is a 75-year-old male who was admitted to our hospital due to atrial flutter with ventricular rapid response and hypoglycemia. Regarding his atrial flutter with RVR, he was treated with diltiazem and beta- vivi metoprolol. His heart rate is gradually controlled. Continue apixaban. Patient has a hypoglycemia in the ER, 47. As per patient, recently changed his diet regimen. He has been on Levemir 100 in the morning and 100 in the afternoon. But in the hospital, he received only 3 units insulin. Obviously, I would like to watch her at least 24 hours and adjust his dose of insulin. However, he was insistent on going home today. VICKI Mejia and I explained the benefits and significance if he can stay in the hospital for 1 more night and risks including if he had a complete course of treatment. He fully understood and left with AMA. I advised him to check blood sugar before each meal and at bedtime. Adjust insulin based on his sugar levels. He has insulin at home. Call PCP or immediately go to ER for medication. Discharge diagnosis: Atrial flutter with RVR, hypoglycemia Time Spent with Patient Time attestation: Total time spent providing and/or coordinating discharge services: EXAM Constitutional Vitals: Temp Pulse Resp BP Pulse Ox 98 F 89 22 129/75 99 09/22/20 16:01 06/15/20 02:01 06/15/20 16:01 06/15/20 16:01 06/15/20 16:02 Additional findings Additional findings: General - No acute distress Eyes - PERRLA, EOM intact ENT no rhinorrhea, no noticeable or palpable swelling, no redness or rash around throat or on face Neck supple, no JVD, no thyromegaly Respiratory: Lungs - diminshed BS, no use of accessary muscles. Cardiovascular - RRR no m/r/g, GI - Normal bowel sounds, no distended, soft. Colostomy bag filled yellow-green fecal liquid. Extremeties - No edema, cyanosis or clubbing Hemo/lymphatic/immune no lymphadenopathy Neurological Alert and oriented x 3, no focal neurological deficits. Psychiatry flat affect Discharge Data Data Completed and Pending Labs on day of discharge: Labs from last 24 hours 06/15/20 06/15/20 06/15/20 13:04 07:00 07:00 WBC 8.2 RBC 3.51 L Hgb 11.3 L Hct 33.1 L MCV 94.3 MCH 32.2 MCHC 34.1 RDW 12.3 Plt Count 279 MPV 9.1 Gran % 64.5 Lymph % (Auto) 23.1 [place] % (Auto) 7.8 Eos % (Auto) 4.0 Baso % (Auto) 0.6 Gran # 5.32 Lymph # (Auto) 1.90 [place] # (Auto) 0.64 Eos # (Auto) 0.33 Baso # (Auto) 0.05 Sodium 132 L Potassium 5.3 H Chloride 95 L Carbon Dioxide 22 Anion Gap 15.0 BUN 32 H Creatinine 4.4 H GFR Calculation 12 Glucose 170 H Hemoglobin A1c Estim Average Glucose Calcium 8.6 Phosphorus Magnesium 2.0 Total Bilirubin < 0.2 AST 12 ALT 13 Alkaline Phosphatase 88 Troponin T 0.07 H* NT-Pro-B Natriuret Pep Total Protein 6.4 Albumin 3.4 Globulin 3.0 Albumin/Globulin Ratio 1.1 TSH 06/15/20 06/15/20 06/15/20 07:00 04:12 04:12 WBC RBC Hgb Hct MCV MCH MCHC RDW Plt Count MPV Gran % Lymph % (Auto) [place] % (Auto) Eos % (Auto) Baso % (Auto) Gran # Lymph # (Auto) [place] # (Auto) Eos # (Auto) Baso # (Auto) Sodium Potassium Chloride Carbon Dioxide Anion Gap BUN Creatinine GFR Calculation Glucose Hemoglobin A1c 9.0 H Estim Average Glucose 212 Calcium Phosphorus Magnesium Total Bilirubin AST ALT Alkaline Phosphatase Troponin T 0.07 H* 0.08 H* NT-Pro-B Natriuret Pep Total Protein Albumin Globulin Albumin/Globulin Ratio TSH 2.64 06/15/20 06/15/20 06/14/20 01:00 01:00 21:36 WBC RBC Hgb Hct MCV MCH MCHC RDW Plt Count MPV Gran % Lymph % (Auto) [place] % (Auto) Eos % (Auto) Baso % (Auto) Gran # Lymph # (Auto) [place] # (Auto) Eos # (Auto) Baso # (Auto) Sodium Potassium Chloride Carbon Dioxide Anion Gap BUN Creatinine GFR Calculation Glucose Hemoglobin A1c Estim Average Glucose Calcium Phosphorus 5.5 H Magnesium 2.1 Total Bilirubin AST ALT Alkaline Phosphatase Troponin T 0.08 H* 0.08 H* NT-Pro-B Natriuret Pep 935.7 H Total Protein Albumin Globulin Albumin/Globulin Ratio TSH 06/14/20 21:35 WBC RBC Hgb Hct MCV MCH MCHC RDW Plt Count MPV Gran % Lymph % (Auto) [place] % (Auto) Eos % (Auto) Baso % (Auto) Gran # Lymph # (Auto) [place] # (Auto) Eos # (Auto) Baso # (Auto) Sodium 135 Potassium 4.4 Chloride 95 L Carbon Dioxide 26 Anion Gap 14.0 BUN 26 H Creatinine 3.6 H GFR Calculation 16 Glucose 69 L Hemoglobin A1c Estim Average Glucose Calcium 9.1 Phosphorus Magnesium Total Bilirubin 0.2 AST 13 ALT 16 Alkaline Phosphatase 96 Troponin T NT-Pro-B Natriuret Pep Total Protein 7.5 Albumin 4.0 Globulin 3.5 Albumin/Globulin Ratio 1.1 TSH 3.07 Discharge Plan Patient/Caregiver Discharge Instructions Instructions: Atrial Flutter (GEN), A-fib (Atrial Fibrillation) (GEN), Hypertension (GEN), Hypoglycemia in Adolescents with Diabetes (GEN) Activity Restrictions/Additional Instructions: This discharge packet is provided to you to help keep you informed about your care. We want to ensure you get everything you need when you go home. You will also be receiving a call from us in a few days to follow up with you and see how you are doing since your discharge. This gives us a chance to listen to any concerns you maybe experiencing since you were discharged or any additional needs you may have, as well as providing us feedback on your care experience. We strive to always provide excellent care and thank you for your feedback and for choosing [facility]. Prescriptions: No Action (DME) Ileostomy Supplies Qty: 1 RF: 12 (DME) blood sugar diagnostic, disc [Breeze 2 Test Strips] strip 1 appful TOPICAL DAILY Qty: 200 RF: 3 insulin detemir U-100 [Levemir U-100 Insulin] 100 unit/mL solution See Rx Instructions .ROUTE .COMPLEX Qty: 60 RF: 5 liraglutide [Victoza 3-Luiz] 0.6 mg/0.1 mL (18 mg/3 mL) pen injector See Rx Instructions .ROUTE .COMPLEX Qty: 18 RF: 2 apixaban 2.5 mg tablet 2.5 mg PO BID Qty: 180 RF: 3 diclofenac sodium [Voltaren] 1 % gel 2 g TOPICAL QID Qty: 100 RF: 11 diltiazem HCl 420 mg capsule,extended release 24 hr 420 mg PO QAM Qty: 90 RF: 3 gabapentin 300 mg capsule 300 mg PO QHS Qty: 90 RF: 3 vitamin B complex Tablet 1 tab PO QAM Qty: 100 RF: 3 amitriptyline 25 mg tablet 25 mg PO QHS Qty: 30 RF: 11 (DME) insulin syringe-needle U-100 1 mL 29 gauge x 5/16 syringe See Rx Instructions .ROUTE .MEDSUPPLY Qty: 100 RF: 0 (DME) blood-glucose meter misc 1 appful TOPICAL DAILY RF: 0 (DME) lancets misc 1 appful INJ DAILY RF: 0 meloxicam 15 mg Tablet 15 mg PO QDAY RF: 0 acetaminophen [Tylenol Extra Strength] 500 mg tablet 1,000 mg PO TID RF: 0 lidocaine [Lidoderm] 5 % adhesive patch,medicated 1 patch TOPICAL DAILY RF: 0 CBD drops 3 % PO PRN PRN (Reason: Pain) RF: 0 Follow Up Plan Follow up with: Don Valdivia MD [Physician] - (Continue with your current dialysis schedule. ) Mando Kilgore MD [Primary Care Provider] - 06/22/20 1:15 pm Patient Disposition: Left Against Medical Advice Prognosis: Fair Discharge Date/Time: 06/15/20 18:00 Discharge Orders: Discharge Order (Routine); Ordered 06/15/20 Ordered By: Claire BERMEO VTE Deep Vein Thrombosis/Pulmonary Embolism Present on Admission: No
[2020-06-16] MEDS ORDERED: DILTIAZEM HCL 420 MG PO SCH (09:00)
[2020-06-16] MEDS ORDERED: MELOXICAM 7.5 MG TABLET PO SCH (09:00)
== END 2020-06-15 18:00 | disposition left against medical advice (07) ==
LOC: ICU 20:59 → ED 20:59 → ICU 06-15 02:09
PROVIDERS: ADMIT Internal Medicine; ATTEND Internal Medicine